=== PATIENT | female | born 1940 | race Asian ===

== ENCOUNTER → 2016-03-30 | Outpatient (CLI) | payer MEDICARE, OTHER | LOC: OD 14:56 | PROVIDERS: ATTEND Family Medicine | DX: M15.9 Polyosteoarthritis, unspecified (principal); M47.896 Other spondylosis, lumbar region; M76.892 Other specified enthesopathies of left lower limb, excluding foot; M76.891 Other specified enthesopathies of right lower limb, excluding foot | CPT/HCPCS: 72110 ==

== ENCOUNTER → 2016-04-04 | Outpatient (CLI) | payer MEDICARE, OTHER ==
--- NOTE | 2016-04-04 14:26 | WOMENS IMAGING REPORT ---
EXAM DESCRIPTION: BONE DENSITY HIP/SPINE COMPLETED DATE/TIME: 04/04/2016 1:03 pm REASON FOR STUDY: M81.0 M81.0 AGE-RELATED OSTEOPOROSIS W/O CURRENT PATHOLOGICAL FRAC COMPARISON: 2004, 2007 TECHNIQUE: Dual-Energy X-ray Absorptiometry (DEXA) of the AP Spine and Hip. LIMITATIONS: None. FINDINGS: LUMBAR SPINE: The bone mineral density (BMD) measured from L1-L4 in the AP projection correlates with a T-score of -0.6, which is normal as defined by the World Health Organization. This is stable compared to baseli ne assessment in 2004 HIP: The bone mineral density (BMD) measured in the left femoral neck at the hip correlates with a T-score of -1.3, which is osteopenic as defined by the World Health Organization. This represents a 5% decl ine in bone density compared to 2004 COMMENT: The World Health Organization defines low BMD as follows: T-score: Normal: Greater than -1.0 Osteopenia: Between -1.0 and -2.5 Osteoporosis: Less than -2.5 without fractures Established osteoporosis: Less than -2.5 with fractures In general, you may wish to consider: Diagnosis Treatment Follow-up DEXA Normal BMD Prevention 2-3 years Osteopenia Prevention/Therapy 1-2 years Osteoporosis Therapy Yearly TECHNICAL DOCUMENTATION: JOB ID: [id number] All Rights Reserved
== END ==
LOC: WI 12:27
PROVIDERS: ATTEND Family Medicine
DX: M81.0 Age-related osteoporosis without current pathological fracture (principal); M15.9 Polyosteoarthritis, unspecified
CPT/HCPCS: 77080

== ENCOUNTER 2018-09-20 20:01 | Inpatient (IN) | payer MEDICARE ==
--- NOTE | 2018-09-20 21:30 | ER Document Report ---
ED Medical Screen (RME) - General Chief Complaint: Shortness Of Breath Stated Complaint: TROUBLE BREATHING, ELEVATED BP Time Seen by Provider: 09/20/18 21:19 Primary Care Provider: JUAN SCHAFER MD [Primary Care Provider] - Follow up as needed Notes: Patient is a 77-year-old female who presents to the emergency department with a chief complaint of shortness of breath and difficulty breathing. She states that she has had a cough for the past 4 days. Her initial vital signs showed an oxygen saturation of 84% on room air. On 2 L nasal cannula, the patient is 97%.. She is currently on oxygen, and she normally does not wear oxygen. She has a past medical history of breast cancer years ago. She has a past medical history of an oophorectomy. Patient states that she did travel from here to [place] and back. Exam: Coarse breath sounds noted to bilateral bases. I have greeted and performed a rapid initial assessment of this patient. A comprehensive ED assessment and evaluation of the patient, analysis of test results and completion of medical decision making process will be conducted by an additional ED providers. TRAVEL OUTSIDE OF THE [place] IN LAST 30 DAYS: No - Related Data Allergies/Adverse Reactions: No Known Allergies Allergy (Verified 05/29/14 08:32) Past Medical History - Past Medical History Cardiac Medical History: Reports: Hx Hypertension Denies: Hx Coronary Artery Disease, Hx Heart Attack Pulmonary Medical History: Denies: Hx Asthma, Hx Bronchitis, Hx COPD, Hx Pneumonia Neurological Medical History: Denies: Hx Cerebrovascular Accident, Hx Seizures Renal/ Medical History: Denies: Hx Peritoneal Dialysis Musculoskeltal Medical History: Denies Hx Arthritis Past Surgical History: Reports: Hx Hysterectomy - Immunizations Hx Diphtheria, Pertussis, Tetanus Vaccination: No Physical Exam - Vital signs Vitals: Temp Pulse Resp BP Pulse Ox 98.0 F 96 16 161/91 H 84 L 09/20/18 20:26 09/20/18 20:26 09/20/18 20:26 09/20/18 20:26 09/20/18 20:26 Course - Vital Signs Vital signs: Temp Pulse Resp BP Pulse Ox 98.0 F 96 16 161/91 H 84 L 09/20/18 20:26 09/20/18 20:26 09/20/18 20:26 09/20/18 20:09/20/18 20:26 Doctor's Discharge - Discharge Referrals: JUAN SCHAFER MD [Primary Care Provider] - Follow up as needed
--- NOTE | 2018-09-20 22:05 | RADIOLOGY REPORT (SQ) ---
EXAM DESCRIPTION: XR CHEST 1 VIEW COMPLETED DATE/TME: 09/20/2018 21:25 CLINICAL HISTORY: 77 years, Female, cough x4 days COMPARISON: None. NUMBER OF VIEWS: One TECHNIQUE: Single frontal view of the chest was obtained LIMITATIONS: None. FINDINGS: Cardiac and mediastinal contours are normal. Coarse irregular reticular opacity is noted about both lungs. No pleural effusion or pneumothorax. Surgical clips project over the left axilla. Postsurgical changes of left mastectomy are noted. IMPRESSION: No acute disease. Coarse irregular reticular opacity about both lungs, suspicious for an underlying interstitial lung disease. copyright 2010 [employer]- All Rights Reserved
--- NOTE | 2018-09-20 22:07 | ER Document Report ---
ED General - General Chief Complaint: Shortness Of Breath Stated Complaint: TROUBLE BREATHING, ELEVATED BP Time Seen by Provider: 09/20/18 21:19 Notes: Patient is a pleasant 77-year-old female who presents with complaint of difficulty breathing. Is been progressing over the last couple days. She just recently finished along her trip from [place]. She is a former smoker but quit smoking over 50 years ago. She does have a previous history of breast cancer but is currently cancer free. She denies any fevers. She is had some coughing. No leg edema or swelling. No chest pain. No other complaints at this time. Arrives in triage with O2 saturation in the low to mid 80s. TRAVEL OUTSIDE OF THE [place] IN LAST 30 DAYS: No - Related Data Allergies/Adverse Reactions: No Known Allergies Allergy (Verified 05/29/14 08:32) Past Medical History - Social History Smoking Status: Former Smoker Frequency of alcohol use: None Drug Abuse: None Family History: Reviewed & Not Pertinent Patient has suicidal ideation: No Patient has homicidal ideation: No - Past Medical History Cardiac Medical History: Reports: Hx Hypertension Denies: Hx Coronary Artery Disease, Hx Heart Attack Pulmonary Medical History: Denies: Hx Asthma, Hx Bronchitis, Hx COPD, Hx Pneumonia Neurological Medical History: Denies: Hx Cerebrovascular Accident, Hx Seizures Renal/ Medical History: Denies: Hx Peritoneal Dialysis Musculoskeletal Medical History: Denies Hx Arthritis Past Surgical History: Reports: Hx Hysterectomy - Immunizations Hx Diphtheria, Pertussis, Tetanus Vaccination: No Hx Pneumococcal Vaccination: 12/05/11 Review of Systems - Review of Systems Notes: My Normal Review Basic REVIEW OF SYSTEMS: CONSTITUTIONAL : Denies fever, chills, or sweats. Denies recent illness. EENT: Denies eye, ear, throat, or mouth pain or symptoms. Denies nasal or sinus congestion. CARDIOVASCULAR: Denies chest pain. RESPIRATORY: Difficulty breathing GASTROINTESTINAL: Denies abdominal pain. Denies nausea, vomiting, or diarrhea. GENITOURINARY: Denies difficulty urinating, painful urination, burning, frequency, or blood in urine. MUSCULOSKELETAL: Denies neck or back pain or joint pain or swelling. SKIN: Denies rash or skin lesions. NEUROLOGICAL: Denies altered mental status or loss of consciousness. Denies headache. Denies weakness or paralysis or loss of use of either side. Denies problems with gait or speech. Denies sensory or motor loss. ALL OTHER SYSTEMS REVIEWED AND NEGATIVE. Physical Exam - Vital signs Vitals: Temp Pulse Resp BP Pulse Ox 98.0 F 96 16 161/91 H 84 L 09/20/18 20:26 09/20/18 20:26 09/20/18 20:26 09/20/18 20:26 09/20/18 20:26 - Notes Notes: General Appearance: Well nourished, alert, cooperative, no acute distress, no obvious discomfort. Currently on supplemental oxygen. I turned off her oxygen her O2 saturation gradually downtrends into the 80s of the course of 1 to 2 minutes. This is while she is at rest. Vitals: reviewed, See vital signs table. Head: no swelling or tenderness to the head Eyes: PERRL, EOMI, Conjuctiva clear Mouth: No decreasd moisture Lungs: No wheezing, basilar rales, No rhonci, No accessory muscle use, good air exchange bilaterally. Heart: Normal rate, Regular rythm, No murmur, no rub Abdomen: Normal BS, soft, No rigidity, No abdominal tenderness, No guarding, no rebound, no abdominal masses, no organomegaly Extremities: strength 5/5 in all extremities, good pulses in all extremities, no swelling or tenderness in the extremities, no edema. Skin: warm, dry, appropriate color, no rash Neuro: speech clear, oriented x 3, normal affect, responds appropriately to questions. Course - Re-evaluation Re-evalutation: 09/21/18 01:17 On reevaluation patient continues to have rales-like sounds in her lung cavanaugh mostly in the bases. Her chest x-ray is consistent with interstitial edema versus infection. Is very difficult to tell exactly what she has that she does not have an elevated BNP and she does not have a history of CHF however her lung sounds as if the are wet. She has no wheezing and therefore I do not think a br eathing treatment to help. She does have a little of elevated white count has been having some coughing and therefore we will treat her with antibiotics case this is committed acquired pneumonia. Being that she is hypoxic off oxygen I do feel that she needs admissions and therefore will speak with Dr. Bray, her primary care physician, about admission. I did obtain a CT of the patient's chest being that is not initially clear exactly what is causing hypoxemia and also she has a previous history of cancer and just got done with a recent long road trip. CTA does not show any evidence of PE. 09/21/18 04:05 I did speak early with Dr. Bray about admission. He agrees to admit the patient to his service for treatment of her hypoxemia. Dictation of this chart was performed using voice recognition software; therefore, there may be some unintended grammatical errors. - Vital Signs Vital signs: Temp Pulse Resp BP Pulse Ox 98.2 F 96 20 161/88 H 96 09/21/18 01:00 09/20/18 20:26 09/21/18 03:46 09/21/18 03:46 09/21/18 03:46 - Laboratory Result Diagrams: 09/20/18 22:13 09/20/18 22:13 Laboratory results interpreted by me: 09/20/18 09/20/18 22:13 22:13 WBC 10.8 H Eosinophils % 14.9 H Absolute Eosinophils 1.6 H Chloride 108 H AST 40 H Total Protein 8.8 H - EKG Interpretation by Me Additional EKG results interpreted by me: 09/20/18 22:07 EKG is reviewed and interpreted by me. EKG shows normal sinus rhythm with rate of [address] segment elevation or depression. No ischemic T wave inversions. SD interval, QRS duration, QT intervals are within normal range. No old EKG available for comparison. Discharge - Discharge Clinical Impression: Hypoxemia Dyspnea Qualifiers: Dyspnea type: unspecified Qualified Code(s): R06.00 - Dyspnea, unspecified Condition: Stable Disposition: ADMITTED OBSERVATION Admitting Provider: Asa Unit Admitted: Telemetry
[2018-09-20 22:30] LABS: ABSOLUTE EOSINOPHILS # (AUTO) 1.6 10^3/uL (0.0-0.6); ABSOLUTE MONOCYTES (AUTO) 0.6 10^3/uL (0.1-1.4); ABSOLUTE NEUT (AUTO) 5.5 10^3/uL (1.7-8.2); BASOPHILS % (AUTO) 0.2 % (0-2); EOSINOPHILS % (AUTO) 14.9 % (0-6); HEMATOCRIT 41.8 % (36.0-47.0); HEMOGLOBIN 14.4 g/dL (12.0-15.5); MEAN CORPUSCULAR HEMOGLOBIN 32.8 pg (27.0-33.4); MEAN CORPUSCULAR HGB CONC 34.4 g/dL (32.0-36.0); MEAN CORPUSCULAR VOLUME 95 fl (80-97); MONOCYTES % (AUTO) 5.6 % (3-13); PLATELET COUNT 305 10^3/uL (150-450); RED BLOOD COUNT 4.38 10^6/uL (3.72-5.28); RED CELL DISTRIBUTION WIDTH 13.4 % (11.5-14.0); SEGMENTED NEUTROPHILS % (AUTO) 51.3 % (42-78); TOTAL CELLS COUNTED % (AUTO) 100 %; WHITE BLOOD COUNT 10.8 10^3/uL (4.0-10.5)
[2018-09-20 22:55] LABS: ALANINE AMINOTRANSFERASE 33 U/L (9-52); ALKALINE PHOSPHATASE 89 U/L (38-126); ANION GAP 10 (5-19); ASPARTATE AMINO TRANSFERASE 40 U/L (14-36); BILIRUBIN,DIRECT 0.2 mg/dL (0.0-0.4); BILIRUBIN,TOTAL 0.6 mg/dL (0.2-1.3); BLOOD UREA NITROGEN 15 mg/dL (7-20); CALCIUM 10.1 mg/dL (8.4-10.2); CARBON DIOXIDE 23 mmol/L (22-30); CHLORIDE 108 mmol/L (98-107); GLUCOSE 110 mg/dL (75-110); POTASSIUM 4.4 mmol/L (3.6-5.0); SODIUM 141.2 mmol/L (137-145); TOTAL PROTEIN 8.8 g/dL (6.3-8.2)
[2018-09-20 23:14] LABS: NT PRO BNP 134 pg/mL (<450)
[2018-09-20 23:15] LABS: TROPONIN I < 0.012 ng/mL
--- NOTE | 2018-09-21 01:00 | RADIOLOGY REPORT (SQ) ---
EXAM DESCRIPTION: CT CHEST ANGIOGRAPHY WITHOUT THEN WITH IV CONTRAST COMPLETED DATE/TME: 09/20/2018 23:58 CLINICAL HISTORY: 77 years, Female, dyspnea COMPARISON: None. TECHNIQUE: Axial CT images of the chest were obtained after the injection of IV contrast. MPR and MIP reconstructions were performed. DLP 444 Images stored on PACS. All CT scanners at this facility use dose modulation, iterative reconstruction, and/or weight based dosing when appropriate to reduce radiation dose to as low as reasonably achievable (ALARA). [facility]: Dose Right [facility]: CareDose [facility]: Dose Right [facility]: Teradose 4D [facility]: [employer] LIMITATIONS: None. FINDINGS: No pulmonary embolism is detected to the segmental branches. The thyroid gland is normal. The central airways are patent. There are atherosclerotic calcifications of the thoracic aorta. No evidence of aneurysm or dissection. There are atherosclerotic calcifications of the coronary arteries. No pericardial effusion. No mediastinal or hilar lymphadenopathy. Calcified mediastinal lymph and left hilar lymph nodes are noted. The lungs demonstrate chronic interstitial disease. No focal consolidation, pneumothorax, or pleural effusion. The visualized portions of the upper abdomen are unremarkable. There are changes of a left mastectomy. There are no lytic or blastic bone lesions. IMPRESSION: No CT evidence of acute pulmonary embolism. Chronic interstitial lung disease. TECHNICAL DOCUMENTATION: Quality ID # [id number]: Final reports with documentation of one or more dose reduction techniques (e.g., Automated exposure control, adjustment of the mA and/or kV according to patient size, use of iterative reconstruction technique) copyright 2010 [employer]- All Rights Reserved
[2018-09-21] MEDS ORDERED: LEVOFLOXACIN 750 MG/D5W RTU 750 MG/150 ML RTUPB IV ONE (01:16)
[2018-09-21] MEDS ORDERED: FUROSEMIDE INJ/PF 20 MG/2 ML SDV IV ONE (01:17)
[2018-09-21] MEDS ORDERED: GUAIFENESIN SYRP 200 MG/10 ML UDC PO PRN (01:27)
[2018-09-21] MEDS ORDERED: ACETAMINOPHEN 325 MG TABLET PO PRN (01:27)
[2018-09-21] MEDS ORDERED: IPRATROPIUM/ALBUTEROL 0.5-2.5 MG/3 ML AMPUL NEB PRN (01:27)
[2018-09-21 04:44] LABS: CREATINE KINASE MB 0.33 ng/mL (<4.55)
[2018-09-21 04:46] LABS: TROPONIN I < 0.012 ng/mL
[2018-09-21 06:45] VITALS: BP 145/93
--- NOTE | 2018-09-21 07:37 | Progress Note ---
Provider Note Provider Note: Patients came overnight because of the shortness of the breath and hypoxia and patient initial work-up including CT angiogram was negative and patient blood work is all stable and ER physicians call for admissions for the hypoxia and possible pneumonia Patient at this point came late midnight when I came in the morning 7:00 patient is already left AMA ER physician also discussed with the patient because of the hypoxia requiring oxygen's but patient's left AMA We will call the patient's homes and following office
--- NOTE | 2018-09-21 08:33 | EKG REPORT ---
SEVERITY:- ABNORMAL ECG - SINUS RHYTHM PROBABLE LVH WITH SECONDARY REPOL ABNRM : Confirmed by: Norbert Burnett MD 21-Sep-2018 08:32:45
[2018-09-21] MEDS ORDERED: ENOXAPARIN SODIUM INJ 40 MG/0.4 ML DISP.SYRIN SUBCUT SCH (10:00)
[2018-09-21] MEDS ORDERED: LEVOFLOXACIN 500 MG/D5W RTU 500 MG/100 ML RTUPB IV SCH (10:00)
== END 2018-09-21 08:00 | disposition left against medical advice (07) | DRG 205 ==
LOC: ER 20:01 → EH 09-21 01:25 → OBSVTOIN 09-21 01:25
PROVIDERS: ADMIT Family Medicine; ATTEND Family Medicine
DX: R09.02 Hypoxemia (principal); J18.9 Pneumonia, unspecified organism; Z91.19 Patient's noncompliance with other medical treatment and regimen; Z85.3 Personal history of malignant neoplasm of breast; I10 Essential (primary) hypertension; Z87.891 Personal history of nicotine dependence; Z53.21 Procedure and treatment not carried out due to patient leaving prior to being seen by health care provider
CPT/HCPCS: 36415; 71045; 71275; 80053; 82550; 82553; 83880; 84484; 85025; 87040; 93005; 93010; J1940; J1956

== ENCOUNTER 2019-05-09 18:01 | Inpatient (IN) | payer MEDICARE, OTHER ==
[2019-05-09 18:43] LABS: VENOUS BLOOD BASE EXCESS -6.7 mmol/L; VENOUS BLOOD HCO3 15.7 mmol/L (20-32); VENOUS BLOOD PCO2 22.2 mmHg (35-63); VENOUS BLOOD PH 7.47 (7.30-7.42)
[2019-05-09 18:50] LABS: ABSOLUTE BASOPHILS # (AUTO) 0.1 10^3/uL (0.0-0.2); ABSOLUTE EOSINOPHILS # (AUTO) 0.1 10^3/uL (0.0-0.6); ABSOLUTE LYMPHOCYTES (AUTO) 1.7 10^3/uL (0.5-4.7); ABSOLUTE MONOCYTES (AUTO) 0.4 10^3/uL (0.1-1.4); BASOPHILS % (AUTO) 0.9 % (0-2); EOSINOPHILS % (AUTO) 0.7 % (0-6); HEMATOCRIT 36.9 % (36.0-47.0); HEMOGLOBIN 12.4 g/dL (12.0-15.5); LYMPHOCYTES % (AUTO) 18.6 % (13-45); MEAN CORPUSCULAR HEMOGLOBIN 32.1 pg (27.0-33.4); MEAN CORPUSCULAR HGB CONC 33.7 g/dL (32.0-36.0); MEAN CORPUSCULAR VOLUME 95 fl (80-97); MONOCYTES % (AUTO) 4.4 % (3-13); PLATELET COUNT 195 10^3/uL (150-450); RED BLOOD COUNT 3.88 10^6/uL (3.72-5.28); RED CELL DISTRIBUTION WIDTH 15.2 % (11.5-14.0); SEGMENTED NEUTROPHILS % (AUTO) 75.4 % (42-78); TOTAL CELLS COUNTED % (AUTO) 100 %; WHITE BLOOD COUNT 9.3 10^3/uL (4.0-10.5)
[2019-05-09 18:56] LABS: PROTHROMBIN TIME 14.2 SEC (11.4-15.4)
[2019-05-09 19:02] LABS: ALBUMIN 3.2 g/dL (3.5-5.0); ALKALINE PHOSPHATASE 53 U/L (38-126); ANION GAP 15 (5-19); ASPARTATE AMINO TRANSFERASE 38 U/L (14-36); BILIRUBIN,DIRECT 0.3 mg/dL (0.0-0.4); BLOOD UREA NITROGEN 28 mg/dL (7-20); CALCIUM 8.7 mg/dL (8.4-10.2); CARBON DIOXIDE 18 mmol/L (22-30); CHLORIDE 104 mmol/L (98-107); GLUCOSE 162 mg/dL (75-110); POTASSIUM 4.5 mmol/L (3.6-5.0); TOTAL PROTEIN 6.6 g/dL (6.3-8.2)
[2019-05-09 19:44] LABS: APPEARANCE,URINE SLIGHTLY-CLOUDY; BILIRUBIN,URINE NEGATIVE (NEGATIVE); GLUCOSE, URINE NEGATIVE (NEGATIVE); KETONES,URINE TRACE mg/dL (NEGATIVE); LEUKOCYTE ESTERASE,URINE NEGATIVE (NEGATIVE); NITRITE,URINE NEGATIVE (NEGATIVE); PROTEIN,URINE 30 mg/dL (NEGATIVE); URINE SPECIFIC GRAVITY 1.019; UROBILINOGEN,URINE NEGATIVE mg/dL (<2.0)
[2019-05-09 19:45] LABS: COLOR,URINE YELLOW
[2019-05-09] MEDS ORDERED: IPRATROPIUM/ALBUTEROL 0.5-2.5 MG/3 ML AMPUL NEB ONE (20:00)
[2019-05-09] MEDS ORDERED: METHYLPREDNISOLONE INJ 125 MG/2 ML SDV IV ONE (20:00)
[2019-05-09] MEDS ORDERED: RINGERS SOLUTION,LACTATED 1,000 ML IV ONE (20:06)
--- NOTE | 2019-05-09 20:19 | ER Document Report ---
ED General - General Chief Complaint: Syncope Stated Complaint: WEAKNESS Time Seen by Provider: 05/09/19 19:35 Primary Care Provider: POLY BARBOSA MD [Primary Care Provider] - Follow up as needed Mode of Arrival: Medic Information source: Patient, Relative, Emergency Med Personnel, [facility] Records Notes: This 78-year-old female patient brought the emergency room for a syncopal episode. At 12:30 PM today, she was standing and felt the pain in her back and sat down and was too weak to get back up. 911 was called. EMS arrived and her blood pressure was low. While they were there she began to feel better and refused to be transported. At 5:30 PM today she had gotten up to go to the kitchen and collapsed to the floor in the hallway. Her spouse came in from outdoors and found her on the floor and she was too weak to get up. EMS was called again and at that time she was found to have a blood pressure of 73/52. An IV was started in her right thumb and she received about 500 mL's of LR on the way to the hospital. The patient and her spouse both seem to be slightly demented making it a little difficult to gather a good history. They both denied her having history of diabetes yet she takes metformin and does check her blood sugars at home. TRAVEL OUTSIDE OF THE [place] IN LAST 30 DAYS: No - Related Data Allergies/Adverse Reactions: No Known Allergies Allergy (Verified 05/29/14 08:32) Past Medical History - General Information source: Patient, Relative, Emergency Med Personnel, [facility] Records - Social History Smoking Status: Former Smoker Cigarette use (# per day): No Chew tobacco use (# tins/day): No Smoking Education Provided: No Frequency of alcohol use: None Drug Abuse: None Lives with: Spouse/Significant other Family History: Reviewed & Not Pertinent Patient has suicidal ideation: No Patient has homicidal ideation: No - Past Medical History Cardiac Medical History: Reports: Hx Hypercholesterolemia, Hx Hypertension Pulmonary Medical History: Reports: Hx COPD - Chronic interstitial lung disease Endocrine Medical History: Reports: Hx Diabetes Mellitus Type 2, Hx Hypothyroidism Malignancy Medical History: Reports: Hx Breast Cancer Past Surgical History: Reports: Hx Breast Surgery - Left mastectomy with axillary node dissection, Hx Hysterectomy - Immunizations Hx Diphtheria, Pertussis, Tetanus Vaccination: No Hx Pneumococcal Vaccination: 12/05/11 Review of Systems - Review of Systems Constitutional: Weakness EENT: No symptoms reported Cardiovascular: No symptoms reported Respiratory: Short of breath Gastrointestinal: No symptoms reported Genitourinary: No symptoms reported Female Genitourinary: Post menopausal Musculoskeletal: No symptoms reported Skin: No symptoms reported Hematologic/Lymphatic: No symptoms reported Neurological/Psychological: No symptoms reported Physical Exam - Vital signs Vitals: Resp Pulse Ox 18 91 L 05/09/19 18:22 05/09/19 18:22 Interpretation: Hypotensive, Hypoxic, Tachypneic - General General appearance: Appears well, Alert In distress: Mild - Seems to be in mild respiratory distress - HEENT Head: Normocephalic, Atraumatic Eyes: Normal Pupils: PERRL Neck: Normal - Respiratory Respiratory status: Tachypnea Breath sounds: Other - There are crackles throughout the lung feels more prominent in the bases. This is consistent with her history of chronic interstitial lung disease. Chest palpation: Normal - Cardiovascular Rhythm: Regular Heart sounds: Normal auscultation Murmur: No - Abdominal Inspection: Normal Distension: No distension Bowel sounds: Normal Tenderness: Nontender - Back Back: Other - There is a stage II quarter size decubitus ulcer on the left medial buttock - Extremities General upper extremity: Normal inspection General lower extremity: Normal inspection. No: Edema - Neurological Neuro grossly intact: Yes - Patient does seem to have some dementia - Psychological Associated symptoms: Normal affect, Normal mood - Skin Skin Temperature: Warm Skin Moisture: Dry Skin Color: Normal Course - Vital Signs Vital signs: Temp Pulse Resp BP Pulse Ox 97.9 F 13 119/78 94 05/09/19 18:46 05/09/19 22:29 05/09/19 22:01 05/09/19 22:29 - Laboratory Result Diagrams: 05/09/19 18:23 05/09/19 18:23 Laboratory results interpreted by me: 05/09/19 05/09/19 05/09/19 18:23 18:23 18:23 RDW 15.2 H D-Dimer Carbonic Acid ABG pH ABG pCO2 ABG pO2 VBG pH 7.47 H VBG pCO2 22.2 L VBG HCO3 15.7 L Sodium 136.8 L Carbon Dioxide 18 L BUN 28 H Est GFR ( Amer) 51 L Est GFR (MDRD) Non-Af 43 L Glucose 162 H Lactic Acid AST 38 H Albumin 3.2 L Urine Protein Urine Ketones 05/09/19 05/09/19 05/09/19 18:23 18:23 18:26 RDW D-Dimer 1.34 H Carbonic Acid ABG pH ABG pCO2 ABG pO2 VBG pH VBG pCO2 VBG HCO3 Sodium Carbon Dioxide BUN Est GFR ( Amer) Est GFR (MDRD) Non-Af Glucose Lactic Acid 4.0 H AST Albumin Urine Protein 30 H Urine Ketones TRACE H 05/09/19 05/09/19 20:18 22:05 RDW D-Dimer Carbonic Acid 0.85 L ABG pH 7.48 H ABG pCO2 28.2 L ABG pO2 64.3 L VBG pH VBG pCO2 VBG HCO3 Sodium Carbon Dioxide BUN Est GFR ( Amer) Est GFR (MDRD) Non-Af Glucose Lactic Acid 2.4 H AST Albumin Urine Protein Urine Ketones - Diagnostic Test Radiology reviewed: Image reviewed, Reports reviewed - Chest x-ray shows diffuse interstitial pulmonary fibrosis. CTA chest shows cardiac enlargement with small pericardial effusions emphysema and chronic interstitial infiltrates or fibrosis with some areas of acute superimposed infiltrate in the right midlung field compared to previous study. - EKG Interpretation by [facility] EKG shows normal: Sinus rhythm, King, QRS Complexes. abnormal: Intervals - Prolonged QT interval, ST-T Waves - Repolarization abnormality in the anterior lateral leads suggesting ischemia. Rate: Normal - 98 Rhythm: NSR When compared to previous EKG there are: Changes noted - Compared to 09/20/2018, there are diffuse anterior lateral T wave inversions suggesting ischemic changes. - Consults Dr. Barksdale Time consulted: 22:58 Consulted provider: will come to ER Critical Care Note - Critical Care Note Total time excluding time spent on procedures (mins): 45 Discharge - Discharge Clinical Impression: Pulmonary fibrosis, Hypoxemia, Elevated troponin COPD (chronic obstructive pulmonary disease) Qualifiers: COPD type: emphysema Emphysema type: other Qualified Code(s): J43.8 - Other emphysema Hypotension Qualifiers: Hypotension type: unspecified hypotension type Qualified Code(s): I95.9 - Hypotension, unspecified Pneumonia Qualifiers: Pneumonia type: due to unspecified organism Laterality: right Lung location: middle lobe of lung Qualified Code(s): J18.9 - Pneumonia, unspecified organism Dyspnea Qualifiers: Dyspnea type: shortness of breath Qualified Code(s): R06.02 - Shortness of breath Condition: Good Disposition: ADMITTED INPATIENT Admitting Provider: Shamir Unit Admitted: Telemetry Referrals: POLY BARBOSA MD [Primary Care Provider] - Follow up as needed
[2019-05-09 20:40] LABS: ARTERIAL BLOOD BASE EXCESS -1.6 mmol/L; ARTERIAL BLOOD FIO2 4L; ARTERIAL BLOOD H2CO3 0.85 mmol/L (1.05-1.35); ARTERIAL BLOOD HCO3 20.7 mmol/L (20-24); ARTERIAL BLOOD O2 SATURATION 94.3 % (94-98); ARTERIAL BLOOD PCO2 28.2 mmHg (35-45); ARTERIAL BLOOD PH 7.48 (7.35-7.45); ARTERIAL BLOOD PO2 64.3 mmHg (80-100); ARTERIAL BLOOD TOTAL CO2 21.6 mmol/L (21-25)
[2019-05-09] MEDS: MAGNESIUM SULFATE/D5W 1 GM/100 ML RTUPB IV SCH ×2 (20:41→22:07)
--- NOTE | 2019-05-09 20:42 | RADIOLOGY REPORT (SQ) ---
EXAM DESCRIPTION: [facility]: XR CHEST 1 VIEW CLINICAL HISTORY: 78 years Female; Hypoxic, tachypneic; COMPARISON: 09/28/2018 FINDINGS: Mild diffuse interstitial fibrosis in both lungs is similar to the prior exam. There are no new acute infiltrates. No pneumothorax or pleural effusion. Mild aortic calcification is again noted. No superior mediastinal widening. Heart size within normal limits. Left axillary surgical clips are again noted. No acute bone findings. IMPRESSION: 1. Mild diffuse interstitial fibrosis, similar to prior exam. There is no focal acute infiltrate, but cannot exclude a mild/early pneumonia in the midst of the chronic fibrosis.
--- NOTE | 2019-05-09 22:02 | RADIOLOGY REPORT (SQ) ---
PROCEDURE: CTA chest Completed dated time 05/09/2019 9:01 PM CLINICAL HISTORY: 78 years Female Hypoxic, tachypneic, elevated d-dimer COMPARISON: 09/21/2018. TECHNIQUE: Contiguous axial images were obtained through the chest during the infusion of IV contrast. Reformatted images obtained. MIP reformatted images obtained. This exam was performed according to our department optimization program which includes automated exposure control, adjustment of the mA and/or kv according to patient size and/or use of iterative reconstruction technique. FINDINGS: Cardiac enlargement. Calcification in the aorta in the coronary arteries. There is extensive respiratory motion artifact which limits evaluation particularly of subsegmental lower lobe branches. No convincing evidence for pulmonary embolus. Emphysematous changes which were present on the previous examination. Diffuse interstitial infiltrates bilaterally which may reflect fibrosis. Degree of infiltrate appears slightly increased in the right hemithorax when compared to the previous which may reflect superimposed infectious process or developing asymmetric edema. Fatty infiltration of the liver. Infrarenal aorta is incompletely imaged. Proximal aspect measures 2.4 cm. Bilateral small pleural effusions. IMPRESSION:No evidence of pulmonary embolus Cardiac enlargement with small pericardial effusion Emphysema and chronic interstitial infiltrate or fibrosis with findings that may reflect some areas of acute superimposed infiltrate in the right midlung field when compared to the previous study that may reflect infectious or inflammatory process versus developing asymmetric edema Bilateral pleural effusions
[2019-05-09] MEDS ORDERED: LEVOFLOXACIN 750 MG/D5W RTU 750 MG/150 ML RTUPB IV ONE (22:05)
[2019-05-09] MEDS ORDERED: ALBUTEROL SULFATE 0.083% NEB 2.5 MG/3 ML AMPUL NEB ONE (22:05)
[2019-05-10] MEDS ORDERED: ONDANSETRON HCL INJ/PF 4 MG/2 ML SDV IV PRN (00:05)
[2019-05-10] MEDS ORDERED: ONDANSETRON 4 MG TAB.RAPDIS PO PRN (00:05)
[2019-05-10] MEDS ORDERED: ACETAMINOPHEN 325 MG TABLET PO PRN (00:05)
[2019-05-10] MEDS ORDERED: LEVALBUTEROL HCL NEB 0.63 MG/3 ML AMPUL NEB PRN ×2 (00:05→10:54)
--- NOTE | 2019-05-10 00:37 | PDOC H&P ---
History of Present Illness Admission Date/PCP: 05/09/19 23:57 POLY BARBOSA MD History of Present Illness: EVONNE DICKERSON is a 78 year old female with past medical history significant for severe pulmonary fibrosis, COPD, T2 DM, HTN, HLD who presented after 1 day history of severe shortness of breath/SERRANO. Patient and her initially called EMS to their home earlier today where they gave patient breathing treatments which made her feel better and she refused transportation to ER. Un fortunately, she had a recurrence of the symptoms a few hours later and called EMS again this time allowing them to take her to the hospital. Her blood pressure in ambulance was reportedly 73/52 and she was given 1 L of LR. D-dimer elevated and CTA of chest showed no PE and very small pleural effusions with severe pulmonary fibrosis likely progressed. ABG showed hypoxemia and low CO2. Patient placed on BiPAP and admitted to [facility]. Past Medical History Cardiac Medical History: Reports: Hyperlipidema, Hypertension Pulmonary Medical History: Reports: Chronic Obstructive Pulmonary Disease (COPD) - Chronic interstitial lung disease, Other - Pulmonary fibrosis Endocrine Medical History: Reports: Diabetes Mellitus Type 2, Hypothyroidism Malignancy Medical History: Reports: Breast Cancer Hematology: Denies: Anemia Past Surgical History Past Surgical History: Reports: Hysterectomy Social History Information Source: Patient, Emergency Med Personnel, [facility] Records Lives with: Family, Spouse/Significant other Smoking Status: Former Smoker - Advance Directive Resuscitation Status: Full Code Surrogate healthcare decision maker:: Family History Family History: Reviewed & Not Pertinent Parental Family History Reviewed: Yes Children Family History Reviewed: Yes Sibling(s) Family History Reviewed.: Yes Medication/Allergy Home Medications: Aspirin [Aspirin EC] 81 mg PO DAILY 05/28/14 Atenolol [Tenormin 25 mg Tablet] 25 mg PO DAILY 05/28/14 Felodipine [Plendil] 5 mg PO DAILY 05/28/14 Atorvastatin Calcium [Lipitor 10 mg Tablet] 10 mg PO QHS 09/21/18 Carboxymethylcellulose Sodium [Refresh Plus 0.5% Oph Soln 0.4 ml [place]] 1 drop OU PRN PRN 09/21/18 Levothyroxine Sodium [Synthroid 0.025 mg Tablet] 0.025 mg PO Q6AM 09/21/18 Meloxicam [Mobic 7.5 mg Tablet] 7.5 mg PO DAILY 09/21/18 Metformin HCl [Glucophage 500 mg Tablet] 500 mg PO BIDACBS 09/21/18 [place]-3/Dha/Epa/Fish Oil [Fish Oil 1,000 mg Softgel] 1,000 mg PO DAILY 09/21/18 Allergies/Adverse Reactions: No Known Allergies Allergy (Verified 05/29/14 08:32) Review of Systems All systems: reviewed and no additional remarkable complaints except as stated - See HPI for full ROS, otherwise negative Respiratory: PRESENT: dyspnea Physical Exam Vital Signs: Temp Pulse Resp BP Pulse Ox 97.9 F 18 110/56 L 95 05/09/19 18:46 05/10/19 00:00 05/09/19 23:45 05/10/19 00:00 Intake & Output 05/08/19 05/09/19 05/10/19 06:59 06:59 06:59 Intake Total 1200 Balance 1200 Weight 57.606 kg General appearance: PRESENT: cooperative, hard of hearing, mild distress Head exam: PRESENT: atraumatic, normocephalic Eye exam: PRESENT: conjunctiva pink Mouth exam: PRESENT: moist Respiratory exam: PRESENT: crackles - Velcro rales, decreased breath sounds, tachypnea. ABSENT: wheezes Cardiovascular exam: PRESENT: RRR. ABSENT: diastolic murmur, rubs, systolic murmur GI/Abdominal exam: PRESENT: normal bowel sounds, soft. ABSENT: distended, guarding, mass, organolmegaly, rebound, tenderness Rectal exam: PRESENT: deferred Neurological exam: PRESENT: alert, awake, oriented to person Psychiatric exam: PRESENT: appropriate affect, normal mood Skin exam: PRESENT: dry, warm, other - Stage I sacral decubitus ulcer Results Laboratory Results: 05/09/19 18:23 05/09/19 18:23 05/09/19 05/09/19 05/09/19 18:23 18:23 18:23 WBC 9.3 RBC 3.88 Hgb 12.4 Hct 36.9 MCV 95 MCH 32.1 MCHC 33.7 RDW 15.2 H Plt Count 195 Seg Neutrophils % 75.4 Carbonic Acid HCO3/H2CO3 Ratio ABG pH ABG pCO2 ABG pO2 ABG HCO3 ABG O2 Saturation ABG Base Excess VBG pH 7.47 H VBG pCO2 22.2 L VBG HCO3 15.7 L VBG Base Excess -6.7 FiO2 Sodium 136.8 L Potassium 4.5 Chloride 104 Carbon Dioxide 18 L Anion Gap 15 BUN 28 H Creatinine 1.22 Est GFR ( Amer) 51 L Glucose 162 H Lactic Acid Calcium 8.7 Total Bilirubin 1.0 AST 38 H Alkaline Phosphatase 53 Total Protein 6.6 Albumin 3.2 L Urine Color Urine Appearance Urine pH Ur Specific [place] Urine Protein Urine Glucose (UA) Urine Ketones Urine Blood Urine Nitrite Ur Leukocyte Esterase Urine WBC (Auto) Urine RBC (Auto) 05/09/19 05/09/19 05/09/19 18:23 18:26 20:18 WBC RBC Hgb Hct MCV MCH MCHC RDW Plt Count Seg Neutrophils % Carbonic Acid 0.85 L HCO3/H2CO3 Ratio 24:1 ABG pH 7.48 H ABG pCO2 28.2 L ABG pO2 64.3 L ABG HCO3 20.7 ABG O2 Saturation 94.3 ABG Base Excess -1.6 VBG pH VBG pCO2 VBG HCO3 VBG Base Excess FiO2 4L Sodium Potassium Chloride Carbon Dioxide Anion Gap BUN Creatinine Est GFR ( Amer) Glucose Lactic Acid 4.0 H Calcium Total Bilirubin AST Alkaline Phosphatase Total Protein Albumin Urine Color YELLOW Urine Appearance SLIGHTLY-CLOUDY Urine pH 6.0 Ur Specific [place] 1.019 Urine Protein 30 H Urine Glucose (UA) NEGATIVE Urine Ketones TRACE H Urine Blood NEGATIVE Urine Nitrite NEGATIVE Ur Leukocyte Esterase NEGATIVE Urine WBC (Auto) 5 Urine RBC (Auto) 1 05/09/19 22:05 WBC RBC Hgb Hct MCV MCH MCHC RDW Plt Count Seg Neutrophils % Carbonic Acid HCO3/H2CO3 Ratio ABG pH ABG pCO2 ABG pO2 ABG HCO3 ABG O2 Saturation ABG Base Excess VBG pH VBG pCO2 VBG HCO3 VBG Base Excess FiO2 Sodium Potassium Chloride Carbon Dioxide Anion Gap BUN Creatinine Est GFR ( Amer) Glucose Lactic Acid 2.4 H Calcium Total Bilirubin AST Alkaline Phosphatase Total Protein Albumin Urine Color Urine Appearance Urine pH Ur Specific [place] Urine Protein Urine Glucose (UA) Urine Ketones Urine Blood Urine Nitrite Ur Leukocyte Esterase Urine WBC (Auto) Urine RBC (Auto) 05/09/19 05/09/19 05/09/19 18:23 20:33 20:33 Creatine Kinase 37 Troponin I 0.128 0.120 Impressions: Chest X-Ray 05/09/19 19:54 IMPRESSION: 1. Mild diffuse interstitial fibrosis, similar to prior exam. There is no focal acute infiltrate, but cannot exclude a mild/early pneumonia in the midst of the chronic fibrosis. Chest/Abdomen CTA 05/09/19 20:42 IMPRESSION:No evidence of pulmonary embolus Cardiac enlargement with small pericardial effusion Emphysema and chronic interstitial infiltrate or fibrosis with findings that may reflect some areas of acute superimposed infiltrate in the right midlung field when compared to the previous study that may reflect infectious or inflammatory process versus developing asymmetric edema Bilateral pleural effusions Assessment and Plan - Diagnosis (1) Pulmonary fibrosis Is this a current diagnosis for this admission?: Yes Plan: Likely acute flare of pulmonary fibrosis and COPD IV steroids Nebulizer treatments Bronchial hygiene Consider pulmonology consult in a.m. Uses 2 to 4 L nasal cannula home oxygen, given BiPAP here (2) Elevated troponin Is this a current diagnosis for this admission?: Yes Plan: Elevated on admission, trend troponin Denies chest pain No acute findings on EKG Consider echocardiogram and cardiology consult if troponin is rising (3) Hypotension Qualifiers: Hypotension type: unspecified hypotension type Qualified Code(s): I95.9 - Hypotension, unspecified Is this a current diagnosis for this admission?: Yes Plan: Unclear etiology possibly due to poor p.o. intake Only give gentle IV fluids given presence of small pleural effusions on CTA; may benefit from midodrine if BP continues to be low (4) Acute respiratory failure with hypoxemia Is this a current diagnosis for this admission?: Yes Plan: Due to COPD and pulmonary fibrosis Interventions as above Oxygen saturation goal 89 to 94% (5) Ulcer of sacral region, stage 1 Is this a current diagnosis for this admission?: Yes Plan: Present on admission Appears to be a new finding, needs wound fci health (6) T2DM (type 2 diabetes mellitus) Qualifiers: Diabetes mellitus fci insulin use: without machine long goods helper use Diabetes mellitus complication status: with hyperglycemia Qualified Code(s): E11.65 - Type 2 diabetes mellitus with hyperglycemia Is this a current diagnosis for this admission?: Yes Plan: Patient has been appear to be unaware of her diabetes diagnosis however she takes metformin at home Hold metformin Low-dose correctional insulin, Accu-Cheks A1c (7) HTN (hypertension) Is this a current diagnosis for this admission?: Yes Plan: BP low on admission, hold antihypertensives (8) Chronic steroid use Is this a current diagnosis for this admission?: Yes Plan: Takes this for pulmonary fibrosis Per records, takes 30 mg prednisone daily the patient cannot recall anything related to her medications Do not abruptly stop her steroids (9) Hypothyroidism Is this a current diagnosis for this admission?: Yes Plan: Resume Synthroid (10) COPD (chronic obstructive pulmonary disease) Qualifiers: COPD type: emphysema Emphysema type: other Qualified Code(s): J43.8 - Other emphysema Is this a current diagnosis for this admission?: Yes Plan: As above - Time Time Spent with patient: 35 or more minutes Medications reviewed and adjusted accordingly: Yes - Inpatient Certification Based on my medical assessment, after consideration of the patient's comorbidities, presenting symptoms, or acuity I expect that the services needed warrant INPATIENT care.: Yes I certify that my determination is in accordance with my understanding of Medicare's requirements for reasonable and necessary INPATIENT services [42 CFR 412.3e].: Yes Medical Necessity: Significant Comorbidiites Make Outpatient Treatment Too Risky, Need Close Monitoring Due to Risk of Patient Decompensation, Need for Nebulizer Therapy and Monitoring of Response
--- NOTE | 2019-05-10 00:37 | ADVANCED CARE ---
- Diagnosis (1) Pulmonary fibrosis Diagnosis Current: Yes (2) Elevated troponin Diagnosis Current: Yes (3) Hypotension Diagnosis Current: Yes (4) Acute respiratory failure with hypoxemia Diagnosis Current: Yes (5) Ulcer of sacral region, stage 1 Diagnosis Current: Yes (6) T2DM (type 2 diabetes mellitus) Diagnosis Current: Yes (7) HTN (hypertension) Diagnosis Current: Yes (8) Chronic steroid use Diagnosis Current: Yes (9) Hypothyroidism Diagnosis Current: Yes (10) COPD (chronic obstructive pulmonary disease) Diagnosis Current: Yes Attendance: Patient Resuscitation Status: Full Code Discussion: All aspects of CODE STATUS discussed including chest compressions, cardiove rsion, intubation and patient states she would like to be full code. Patient states she wants her to be her M POA Time Spent: 17 minutes
[2019-05-10] MEDS: IPRATROPIUM/ALBUTEROL 0.5-2.5 MG/3 ML AMPUL NEB SCH ×4 (02:22→20:55)
[2019-05-10] MEDS ORDERED: METHYLPREDNISOLONE INJ 40 MG/1 ML SDV IV SCH (06:00)
--- NOTE | 2019-05-10 07:42 | EKG REPORT ---
SEVERITY:- ABNORMAL ECG - SINUS RHYTHM REPOL ABNRM SUGGESTS ISCHEMIA, ANT-LAT LEADS BORDERLINE PROLONGED QT INTERVAL : Confirmed by: Norbert Burnett MD 10-May-2019 07:42:03
--- NOTE | 2019-05-10 07:44 | EKG REPORT ---
SEVERITY:- ABNORMAL ECG - SINUS TACHYCARDIA BORDERLINE ST DEPRESSION, LATERAL LEADS ABNORMAL T, CONSIDER ISCHEMIA, DIFFUSE LEADS PROLONGED QT INTERVAL CLINICAL CORRELATION NEEDED : Confirmed by: Norbert Burnett MD 10-May-2019 07:43:37
[2019-05-10] MEDS: ENOXAPARIN SODIUM INJ 40 MG/0.4 ML DISP.SYRIN SUBCUT SCH (10:30)
--- NOTE | 2019-05-10 10:57 | PDOC PROGRESS REPORT ---
Subjective Progress Note for:: 05/10/19 Subjective:: On discussion with patient today, patient states that she had a presyncopal episode yesterday when she got up to get her rice bowl. Admitted feeling lightheaded at the time. Denies any chest pain or shortness of breath currently. Reason For Visit: PULMONARY FIBROSIS FLARE,SUSPECTED PNEUMONIA, Physical Exam Vital Signs: Temp Pulse Resp BP Pulse Ox 97.7 F 105 H 16 119/72 95 05/10/19 07:11 05/10/19 08:55 05/10/19 08:55 05/10/19 07:11 05/10/19 08:55 Intake & Output 05/09/19 05/10/19 05/11/19 06:59 06:59 06:59 Intake Total 1350 Balance 1350 Weight 53.5 kg General appearance: PRESENT: no acute distress, cooperative Neck exam: ABSENT: JVD Respiratory exam: PRESENT: crackles, symmetrical, unlabored. ABSENT: accessory muscle use, retraction, tachypnea, wheezes Cardiovascular exam: PRESENT: +S1, +S2, tachycardia. ABSENT: irregular rhythm GI/Abdominal exam: PRESENT: normal bowel sounds, soft. ABSENT: rebound, rigid, tenderness Neurological exam: PRESENT: alert, awake, oriented to person, oriented to place, oriented to time Results Laboratory Results: 05/09/19 18:23 05/09/19 18:23 05/09/19 05/09/19 05/09/19 18:23 18:23 18:23 WBC 9.3 RBC 3.88 Hgb 12.4 Hct 36.9 MCV 95 MCH 32.1 MCHC 33.7 RDW 15.2 H Plt Count 195 Seg Neutrophils % 75.4 Carbonic Acid HCO3/H2CO3 Ratio ABG pH ABG pCO2 ABG pO2 ABG HCO3 ABG O2 Saturation ABG Base Excess VBG pH 7.47 H VBG pCO2 22.2 L VBG HCO3 15.7 L VBG Base Excess -6.7 FiO2 Sodium 136.8 L Potassium 4.5 Chloride 104 Carbon Dioxide 18 L Anion Gap 15 BUN 28 H Creatinine 1.22 Est GFR ( Amer) 51 L Glucose 162 H Lactic Acid Calcium 8.7 Total Bilirubin 1.0 AST 38 H Alkaline Phosphatase 53 Total Protein 6.6 Albumin 3.2 L Urine Color Urine Appearance Urine pH Ur Specific [place] Urine Protein Urine Glucose (UA) Urine Ketones Urine Blood Urine Nitrite Ur Leukocyte Esterase Urine WBC (Auto) Urine RBC (Auto) 05/09/19 05/09/19 05/09/19 18:23 18:26 20:18 WBC RBC Hgb Hct MCV MCH MCHC RDW Plt Count Seg Neutrophils % Carbonic Acid 0.85 L HCO3/H2CO3 Ratio 24:1 ABG pH 7.48 H ABG pCO2 28.2 L ABG pO2 64.3 L ABG HCO3 20.7 ABG O2 Saturation 94.3 ABG Base Excess -1.6 VBG pH VBG pCO2 VBG HCO3 VBG Base Excess FiO2 4L Sodium Potassium Chloride Carbon Dioxide Anion Gap BUN Creatinine Est GFR ( Amer) Glucose Lactic Acid 4.0 H Calcium Total Bilirubin AST Alkaline Phosphatase Total Protein Albumin Urine Color YELLOW Urine Appearance SLIGHTLY-CLOUDY Urine pH 6.0 Ur Specific [place] 1.019 Urine Protein 30 H Urine Glucose (UA) NEGATIVE Urine Ketones TRACE H Urine Blood NEGATIVE Urine Nitrite NEGATIVE Ur Leukocyte Esterase NEGATIVE Urine WBC (Auto) 5 Urine RBC (Auto) 1 05/09/19 05/10/19 05/10/19 22:05 01:46 07:49 WBC RBC Hgb Hct MCV MCH MCHC RDW Plt Count Seg Neutrophils % Carbonic Acid HCO3/H2CO3 Ratio ABG pH ABG pCO2 ABG pO2 ABG HCO3 ABG O2 Saturation ABG Base Excess VBG pH VBG pCO2 VBG HCO3 VBG Base Excess FiO2 Sodium Potassium Chloride Carbon Dioxide Anion Gap BUN Creatinine Est GFR ( Amer) Glucose Lactic Acid 2.4 H 3.1 H 2.8 H Calcium Total Bilirubin AST Alkaline Phosphatase Total Protein Albumin Urine Color Urine Appearance Urine pH Ur Specific [place] Urine Protein Urine Glucose (UA) Urine Ketones Urine Blood Urine Nitrite Ur Leukocyte Esterase Urine WBC (Auto) Urine RBC (Auto) 05/09/19 05/09/19 05/09/19 18:23 20:33 20:33 Creatine Kinase 37 Troponin I 0.128 0.120 05/10/19 05/10/19 01:46 07:49 Creatine Kinase Troponin I 0.563 0.535 Impressions: Chest X-Ray 05/09/19 19:54 IMPRESSION: 1. Mild diffuse interstitial fibrosis, similar to prior exam. There is no focal acute infiltrate, but cannot exclude a mild/early pneumonia in the midst of the chronic fibrosis. Chest/Abdomen CTA 05/09/19 20:42 IMPRESSION:No evidence of pulmonary embolus Cardiac enlargement with small pericardial effusion Emphysema and chronic interstitial infiltrate or fibrosis with findings that may reflect some areas of acute superimposed infiltrate in the right midlung field when compared to the previous study that may reflect infectious or inflammatory process versus developing asymmetric edema Bilateral pleural effusions Assessment and Plan - Diagnosis (1) Pulmonary fibrosis Is this a current diagnosis for this admission?: Yes Plan: Suspected to have acute flare of pulmonary fibrosis and COPD on admission. Currently patient's respiratory status is improved and she is off BiPAP and looking very comfortable. Continue IV steroids for today and can probably de-escalate back to her prednisone home dose tomorrow Nebulizers (2) Acute and chronic respiratory failure with hypoxia Is this a current diagnosis for this admission?: Yes Plan: At baseline, patient uses oxygen 2-4L at home. Currently has been weaned successfully back to 4 L nasal cannula off BiPAP. Can discontinue BiPAP. (3) Hypotension Qualifiers: Hypotension type: unspecified hypotension type Qualified Code(s): I95.9 - Hypotension, unspecified Is this a current diagnosis for this admission?: Yes Plan: Patient did report presyncopal episode occurring yesterday Possible dehydration. Blood pressure has normalized with IV fluids. CTA negative for PE EKG showing sinus tachycardia gentle hydration and check orthostatics (4) COPD (chronic obstructive pulmonary disease) Qualifiers: COPD type: emphysema Emphysema type: other Qualified Code(s): J43.8 - Other emphysema Is this a current diagnosis for this admission?: Yes Plan: As above (5) Elevated troponin Is this a current diagnosis for this admission?: Yes Plan: Troponin seems to have peaked around 0.5 and is currently trending down. Likely secondary to demand perfusion mismatch from hypotension and hypoxia No need for heparinization (6) T2DM (type 2 diabetes mellitus) Qualifiers: Diabetes mellitus long term care pharmacist insulin use: without long term care pharmacist use Diabetes mellitus complication status: with hyperglycemia Qualified Code(s): E11.65 - Type 2 diabetes mellitus with hyperglycemia Is this a current diagnosis for this admission?: Yes Plan: Patient has been appear to be unaware of her diabetes diagnosis however she takes metformin at home Hold metformin Low-dose correctional insulin, Accu-Cheks - Time Time Spent with patient: 15-24 minutes
[2019-05-10] MEDS: ATENOLOL 50 MG TABLET PO SCH (18:34)
[2019-05-10] MEDS: ASPIRIN 81 MG TABLET, ENT COATED PO SCH (18:55)
[2019-05-10] MEDS: METHYLPREDNISOLONE INJ 40 MG/1 ML SDV IV SCH (21:28)
[2019-05-10] MEDS ORDERED: ATORVASTATIN CALCIUM 10 MG TABLET PO SCH (22:00)
[2019-05-11] MEDS: RINGERS SOLUTION,LACTATED 1,000 ML IV PRN ×2 (00:56→13:59)
[2019-05-11] MEDS: IPRATROPIUM/ALBUTEROL 0.5-2.5 MG/3 ML AMPUL NEB SCH ×3 (04:06→13:34)
[2019-05-11] MEDS ORDERED: LEVOTHYROXINE SODIUM 0.025 MG TABLET PO SCH (06:00)
[2019-05-11 06:10] LABS: ABSOLUTE LYMPHOCYTES (AUTO) 0.9 10^3/uL (0.5-4.7); ABSOLUTE MONOCYTES (AUTO) 0.3 10^3/uL (0.1-1.4); ABSOLUTE NEUT (AUTO) 11.6 10^3/uL (1.7-8.2); BASOPHILS % (AUTO) 0.1 % (0-2); HEMATOCRIT 30.8 % (36.0-47.0); HEMOGLOBIN 10.8 g/dL (12.0-15.5); LYMPHOCYTES % (AUTO) 7.2 % (13-45); MEAN CORPUSCULAR HEMOGLOBIN 32.7 pg (27.0-33.4); MEAN CORPUSCULAR HGB CONC 35.1 g/dL (32.0-36.0); MEAN CORPUSCULAR VOLUME 93 fl (80-97); MONOCYTES % (AUTO) 2.6 % (3-13); PLATELET COUNT 182 10^3/uL (150-450); RED BLOOD COUNT 3.31 10^6/uL (3.72-5.28); RED CELL DISTRIBUTION WIDTH 15.3 % (11.5-14.0); SEGMENTED NEUTROPHILS % (AUTO) 90.1 % (42-78); TOTAL CELLS COUNTED % (AUTO) 100 %; WHITE BLOOD COUNT 12.9 10^3/uL (4.0-10.5)
[2019-05-11 06:33] LABS: ANION GAP 7 (5-19); BLOOD UREA NITROGEN 22 mg/dL (7-20); CALCIUM 8.6 mg/dL (8.4-10.2); CARBON DIOXIDE 23 mmol/L (22-30); CHLORIDE 105 mmol/L (98-107); GLUCOSE 229 mg/dL (75-110); PHOSPHORUS 3.5 mg/dL (2.5-4.5); POTASSIUM 4.4 mmol/L (3.6-5.0)
[2019-05-11] MEDS: ENOXAPARIN SODIUM INJ 40 MG/0.4 ML DISP.SYRIN SUBCUT SCH (08:46)
[2019-05-11] MEDS: METHYLPREDNISOLONE INJ 40 MG/1 ML SDV IV SCH (09:51)
[2019-05-11] MEDS: ASPIRIN 81 MG TABLET, ENT COATED PO SCH (10:03)
[2019-05-11] MEDS: ATENOLOL 50 MG TABLET PO SCH (10:03)
--- NOTE | 2019-05-11 13:53 | PDOC CONSULTATION ---
Consultation Consult Date: 05/11/19 Attending physician:: RENETTA KIRK Provider Consulted: ONEIL GUILLAUME Consult reason:: Elevated troponin History of Present Illness Admission Date/PCP: 05/09/19 23:57 POLY BARBOSA MD History of Present Illness: EVONNE DICKERSON is a 78 year old female With the following active problems 1. COPD 2. Pulmonary fibrosis 3. Systemic hypertension 4. Dyslipidemia Patient presented with severe respiratory distress and profound hypoxemia as w ell as hypotension. Imaging studies were negative for PE. EKG was concerning for myocardial ischemia in the presence of sinus tachycardia however patient had ongoing profound hypoxemia. Cardiac biomarkers including troponin were elevated. However the elevation in troponin is up 2.5 without a clear trend. Patient did not having chest pain. No prior mention of coronary artery disease At the present time resting comfortably without chest pain or dyspnea. Feels much better. Former smoker. Presently does not smoke cigarettes. No prior cardiac illnesses reported. No familial illnesses reported. Past Medical History Cardiac Medical History: Reports: Hyperlipidema, Hypertension Pulmonary Medical History: Reports: Chronic Obstructive Pulmonary Disease (COPD) - Chronic interstitial lung disease, Other - Pulmonary fibrosis Endocrine Medical History: Reports: Diabetes Mellitus Type 2, Hypothyroidism Malignancy Medical History: Reports: Breast Cancer Psychiatric Medical History: Denies: Depression Hematology: Denies: Anemia Past Surgical History Past Surgical History: Reports: Hysterectomy Social History Lives with: Family, Spouse/Significant other Smoking Status: Former Smoker Electronic Cigarette use?: No Frequency of Alcohol Use: Rare Hx Recreational Drug Use: No Hx Prescription Drug Abuse: No - Advance Directive Resuscitation Status: Full Code Family History Family History: Reviewed & Not Pertinent Parental Family History Reviewed: No - No familial illnesses no familial illnesses Children Family History Reviewed: NA Sibling(s) Family History Reviewed.: NA Medication/Allergy Home Medications: Aspirin [Aspirin EC] 81 mg PO DAILY 05/28/14 Atenolol [Tenormin 25 mg Tablet] 25 mg PO DAILY 05/28/14 Felodipine [Plendil] 5 mg PO DAILY 05/28/14 Atorvastatin Calcium [Lipitor 10 mg Tablet] 10 mg PO QHS 09/21/18 Levothyroxine Sodium [Synthroid 0.025 mg Tablet] 0.025 mg PO QAM 09/21/18 Metformin HCl [Glucophage 500 mg Tablet] 500 mg PO BIDACBS 09/21/18 [place]-3/Dha/Epa/Fish Oil [Fish Oil 1,000 mg Softgel] 1,000 mg PO DAILY 09/21/18 Albuterol Sulfate [Proair HFA Inhalation Aerosol 8.5 gm MDI] 1 puff IH Q6HP PRN 05/10/19 Cholecalciferol (Vitamin D3) [Vitamin D3] 125 mcg PO DAILY 05/10/19 Famotidine [Pepcid AC] 5 mg PO DAILY 05/10/19 Allergies/Adverse Reactions: No Known Allergies Allergy (Verified 05/29/14 08:32) Review of Systems Constitutional: PRESENT: as per HPI Eyes: PRESENT: as per HPI Ears: PRESENT: as per HPI Nose, Mouth, and Throat: PRESENT: as per HPI Cardiovascular: PRESENT: as per HPI Respiratory: PRESENT: as per HPI, dyspnea Gastrointestinal: PRESENT: as per HPI Genitourinary: PRESENT: as per HPI Integumentary: PRESENT: as per HPI Neurological: PRESENT: as per HPI Psychiatric: PRESENT: as per HPI Endocrine: PRESENT: as per HPI Hematologic/Lymphatic: PRESENT: as per HPI Physical Exam Vital Signs: Temp Pulse Resp BP Pulse Ox 97.8 F 95 16 139/84 H 96 05/11/19 11:04 05/11/19 13:35 05/11/19 13:35 05/11/19 11:04 05/11/19 13:35 Intake & Output 05/10/19 05/11/19 05/12/19 06:59 06:59 07:59 Intake Total 1350 550 260 Output Total 300 Balance 1350 250 260 Weight 53.5 kg 52.6 kg General appearance: PRESENT: no acute distress, cooperative, well-developed Head exam: PRESENT: atraumatic, normocephalic Eye exam: PRESENT: conjunctiva pink, EOMI Respiratory exam: PRESENT: prolonged expiratory phas, rhonchi, symmetrical, unlabored Cardiovascular exam: PRESENT: RRR, +S1, +S2 Pulses: PRESENT: normal radial pulses GI/Abdominal exam: PRESENT: soft Rectal exam: PRESENT: deferred Musculoskeletal exam: PRESENT: normal inspection Neurological exam: PRESENT: alert, awake, oriented to person, oriented to place, oriented to time, oriented to situation Psychiatric exam: PRESENT: appropriate affect Skin exam: PRESENT: dry, intact, normal color Results Laboratory Results: 05/11/19 05:43 05/11/19 05:43 05/11/19 05/11/19 05/11/19 05:43 05:43 05:43 WBC 12.9 H RBC 3.31 L Hgb 10.8 L Hct 30.8 L MCV 93 MCH 32.7 MCHC 35.1 RDW 15.3 H Plt Count 182 Seg Neutrophils % 90.1 H Sodium 134.7 L Potassium 4.4 Chloride 105 Carbon Dioxide 23 Anion Gap 7 BUN 22 H Creatinine 1.08 Est GFR ( Amer) 59 L Glucose 229 H Lactic Acid 1.4 Calcium 8.6 Phosphorus 3.5 Magnesium 2.4 H 05/09/19 05/09/19 05/09/19 18:23 20:33 20:33 Creatine Kinase 37 Troponin I 0.128 0.120 05/10/19 05/10/19 05/10/19 01:46 07:49 13:52 Creatine Kinase Troponin I 0.563 0.535 0.546 EKG Comments: Twelve-lead EKG 05/09/2019 1817 hrs. Independently reviewed by me. Sinus rhythm with diffuse ischemia multiple leads with prominent inversions in the precordial leads. Normal AV conduction, QTC 491 ms Twelve-lead EKG 09/20/2018 Sinus rhythm, left ventricular hypertrophy, 92 bpm Impressions: Chest X-Ray 05/09/19 19:54 IMPRESSION: 1. Mild diffuse interstitial fibrosis, similar to prior exam. There is no focal acute infiltrate, but cannot exclude a mild/early pneumonia in the midst of the chronic fibrosis. Chest/Abdomen CTA 05/09/19 20:42 IMPRESSION:No evidence of pulmonary embolus Cardiac enlargement with small pericardial effusion Emphysema and chronic interstitial infiltrate or fibrosis with findings that may reflect some areas of acute superimposed infiltrate in the right midlung field when compared to the previous study that may reflect infectious or inflammatory process versus developing asymmetric edema Bilateral pleural effusions Status: Image reviewed by me - Interstitial fibrosis on chest x-ray Assessment & Plan - Diagnosis (1) Acute and chronic respiratory failure with hypoxia Is this a current diagnosis for this admission?: Yes Plan: Underlying pulmonary fibrosis and COPD with severe exacerbation. Presently doing much better. Bronchodilators and steroids per protocol. Supplemental oxygen. (2) Elevated troponin Is this a current diagnosis for this admission?: Yes Plan: Elevated troponin likely due to type II myocardial infarction in the setting of severe hypoxemia and respiratory distress and also hypotension Presentation and especially resolution of symptoms with correction of this problem suggest that acute coronary syndrome is not present. Would prefer a stratification later if necessary especially based on symptoms should they happen. Agree with not heparinizing. Low-dose aspirin if feasible. Continue atenolol at 50 mg daily Continue atorvastatin 10 mg daily (3) HTN (hypertension) Is this a current diagnosis for this admission?: Yes Plan: Continue medications for systemic hypertension Continue atenolol 50 mg daily
[2019-05-11 15:34] VITALS: BP 131/74
[2019-05-11] MEDS ORDERED: EPINEPHRINE INJ 1 MG/10 ML DISP.SYRIN ONE (16:20)
--- NOTE | 2019-05-11 16:29 | PDOC PROGRESS REPORT ---
Subjective Progress Note for:: 05/11/19 Subjective:: No adverse events overnight. No new complaints. Apparently for quite some time at home she has had trouble ambulating short distances comfortably from a respiratory standpoint. She admitted today not drinking a lot of fluids because it makes her have to get up and go to the bathroom. Her apparently was not aware of this. When she gets up to go to the bathroom her heart rate shoots up and her SPO2 drops and it takes her a few minutes to recover. Reason For Visit: PULMONARY FIBROSIS FLARE,SUSPECTED PNEUMONIA, Physical Exam Vital Signs: Temp Pulse Resp BP Pulse Ox 97.6 F 90 16 131/74 H 93 05/11/19 15:31 05/11/19 15:31 05/11/19 15:31 05/11/19 15:31 05/11/19 15:31 Intake & Output 05/10/19 05/11/19 05/12/19 06:59 06:59 07:59 Intake Total 4947 297 0809 Output Total 300 Balance 1539 037 1381 Weight 53.5 kg 52.6 kg General appearance: PRESENT: no acute distress, cooperative, disheveled Respiratory exam: PRESENT: crackles - Dry bibasilar, symmetrical. ABSENT: accessory muscle use, prolonged expiratory phas, retraction, rhonchi, tachypnea, unlabored, wheezes Cardiovascular exam: PRESENT: RRR, +S1, +S2 Pulses: PRESENT: normal carotid pulses Vascular exam: PRESENT: normal capillary refill GI/Abdominal exam: PRESENT: normal bowel sounds, soft. ABSENT: distended, guarding, rebound, tenderness Extremities exam: ABSENT: clubbing, pedal edema Musculoskeletal exam: PRESENT: normal inspection. ABSENT: deformity Neurological exam: PRESENT: alert, awake, oriented to person, oriented to place, oriented to situation Psychiatric exam: PRESENT: appropriate affect, normal mood Skin exam: PRESENT: dry, warm Results Laboratory Results: 05/11/19 05:43 05/11/19 05:43 05/11/19 05/11/19 05/11/19 05:43 05:43 05:43 WBC 12.9 H RBC 3.31 L Hgb 10.8 L Hct 30.8 L MCV 93 MCH 32.7 MCHC 35.1 RDW 15.3 H Plt Count 182 Seg Neutrophils % 90.1 H Sodium 134.7 L Potassium 4.4 Chloride 105 Carbon Dioxide 23 Anion Gap 7 BUN 22 H Creatinine 1.08 Est GFR ( Amer) 59 L Glucose 229 H Lactic Acid 1.4 Calcium 8.6 Phosphorus 3.5 Magnesium 2.4 H 05/09/19 05/09/19 05/09/19 18:23 20:33 20:33 Creatine Kinase 37 Troponin I 0.128 0.120 05/10/19 05/10/19 05/10/19 01:46 07:49 13:52 Creatine Kinase Troponin I 0.563 0.535 0.546 Impressions: Chest X-Ray 05/09/19 19:54 IMPRESSION: 1. Mild diffuse interstitial fibrosis, similar to prior exam. There is no focal acute infiltrate, but cannot exclude a mild/early pneumonia in the midst of the chronic fibrosis. Chest/Abdomen CTA 05/09/19 20:42 IMPRESSION:No evidence of pulmonary embolus Cardiac enlargement with small pericardial effusion Emphysema and chronic interstitial infiltrate or fibrosis with findings that may reflect some areas of acute superimposed infiltrate in the right midlung field when compared to the previous study that may reflect infectious or inflammatory process versus developing asymmetric edema Bilateral pleural effusions Assessment and Plan - Diagnosis (1) Acute and chronic respiratory failure with hypoxia Is this a current diagnosis for this admission?: Yes Plan: I think this is resolved. She is back to her baseline level of oxygen consumption at rest. We will see what sort of equipment she could benefit from at home that she does not already have. Her wanted to see if she can get a portable oxygen concentrator. (2) Chronic steroid use Is this a current diagnosis for this admission?: Yes Plan: The patient and her both denied using chronic steroids. She has been on IV steroids. We will start to de-escalate. (3) Elevated troponin Is this a current diagnosis for this admission?: Yes Plan: Cardiology consultation is noted. We will continue beta-rosa and statin as recommended. (4) Pulmonary fibrosis Is this a current diagnosis for this admission?: Yes Plan: Stable and at baseline. - Time Time Spent with patient: 15-24 minutes
--- NOTE | 2019-05-11 17:56 | Death Summary ---
Summary Date : 05/11/19 Time of :: 17:41 Autopsy: No Resuscitation Status: Full Code - Final Diagnosis (1) Acute and chronic respiratory failure with hypoxia Is this a current diagnosis for this admission?: Yes (2) Chronic steroid use Is this a current diagnosis for this admission?: Yes (3) Elevated troponin Is this a current diagnosis for this admission?: Yes (4) Pulmonary fibrosis Is this a current diagnosis for this admission?: Yes Hospital Course:: She was admitted for acute worsening of her baseline dyspnea secondary to her end-stage pulmonary fibrosis. She been treated with some steroids and other supportive care. She was actually asking if she could go home today. She did not look very comfortable at rest and so we declined to let her do so. This morning when she got up to go to the bathroom her heart rate went up into the 140s and her SPO2 dropped to around 70 while she was on oxygen. It took her about 15 to 20 minutes to recover. This afternoon she got up to go to the bathroom and a similar episode happened what happened this morning. She was very short of breath while on the toilet. Her had helped her into the bathroom. He said that she then slumped over and then he called for help. Rapid response was called but when no pulse could be found and the patient was not breathing it was switched over to a CODE BLUE. She had 2 doses of epinephrine and approximately 8 minutes of CPR. Patient's decided that she would not have wanted to be intubated. He then wanted the code to be stopped. Patient at 1741 hrs.
== END 2019-05-11 19:30 | disposition left against medical advice (07) | DRG 196 ==
LOC: ER 18:01 → EH 23:57 → 3N 05-10 01:36
PROVIDERS: ADMIT Internal Medicine; ATTEND Internal Medicine
PROC: 5A09457 Assistance with Respiratory Ventilation, 24-96 Consecutive Hours, Continuous Positive Airway Pressure (ICD-10-PCS; principal; 2019-05-09)
DX: J84.10 Pulmonary fibrosis, unspecified (principal); J96.21 Acute and chronic respiratory failure with hypoxia; I21.A1 Myocardial infarction type 2; J84.9 Interstitial pulmonary disease, unspecified; I10 Essential (primary) hypertension; J43.8 Other emphysema; E78.5 Hyperlipidemia, unspecified; I95.9 Hypotension, unspecified; E03.9 Hypothyroidism, unspecified; L89.151 Pressure ulcer of sacral region, stage 1; E78.00 Pure hypercholesterolemia, unspecified; E11.65 Type 2 diabetes mellitus with hyperglycemia; L89.322 Pressure ulcer of left buttock, stage 2; Z79.52 Long term (current) use of systemic steroids; Z87.891 Personal history of nicotine dependence; Z79.84 Long term (current) use of oral hypoglycemic drugs; Z85.3 Personal history of malignant neoplasm of breast; Z79.82 Long term (current) use of aspirin; Z79.899 Other long term (current) drug therapy; Z99.81 Dependence on supplemental oxygen; Z90.12 Acquired absence of left breast and nipple
CPT/HCPCS: 36415; 71045; 71275; 80048; 80053; 81001; 82550; 82803; 83605; 83735; 84100; 84484; 85025; 85379; 85610; 87040; 93005; 93010; 94640; 94660; 96365; 96366; 96367; 96375; 99291; J0171; J1650; J1956; J2920; J2930; J3475; J7120; J7620